=== PATIENT | female | born 1985 | race Caucasian/White ===

== ENCOUNTER 2016-05-15 22:52 | Emergency (ER) | payer OTHER ==
[2016-05-15 23:21] VITALS: BP 126/96
--- NOTE | 2016-05-15 23:27 | ED CARDIAC/CP/PALPITATIONS ---
History of Present Illness General Chief Complaint: Chest Pain Stated Complaint: "DANIELA BEEN STRESSED OUT AND HAVE CHEST PAIN" Source: patient Exam Limitations: no limitations Vital Signs & Intake/Output Vital Signs & Intake/Output Vital Signs Date Time Temp Pulse Resp B/P Pulse O2 O2 Flow FiO2 Ox Delivery Rate 05/16 2323 100 Room Air 05/15 2320 98.6 71 18 126/96 99 Room Air Allergies Coded Allergies: No Known Allergies (11/29/15) Reconcile Medications No Known Home Medications Triage Note: PER PT CP WITH INSPIRATION X 1 HR UNDER ALOT OF STRESS CRYING WHILE EVAL Triage Nurses Notes Reviewed? yes : No Patient currently breastfeeds: No HPI: Patient has noticed that over the past few weeks whenever she gets stressed she gets a tightness in her chest and radiates to her left shoulder. She gets short of breath when she gets a tightness. The tightness goes away after she relaxes. At its worst the tightness is 8 out of 10. Patient was talking to her sister mayte about this so decided to come in for evaluation. Patient denies any current pain however she states that she did have it upon arrival to the emergency department. Past History Travel History Traveled to [place] past 21 day No Medical History Any Pertinent Medical History? none Neurological: NONE EENT: NONE Cardiovascular: NONE Respiratory: NONE Gastrointestinal: NONE Hepatic: NONE Renal: NONE Musculoskeletal: NONE Psychiatric: NONE Endocrine: NONE Blood Disorders: NONE GRAPHIC ART TECHNICIAN/Reproductive: NONE Surgical History Surgical History: non-contributory Psychosocial History What is your primary language Gabonese Tobacco Use: Never used ETOH Use: denies use Illicit Drug Use: denies illicit drug use Family History Hx Contributory? No Review of Systems Review of Systems Constitutional: Reports: no symptoms. EENTM: Reports: no symptoms. Respiratory: Reports: see HPI, short of breath. Cardiovascular: Reports: see HPI, chest pain. GI: Reports: no symptoms. Genitourinary: Reports: no symptoms. Musculoskeletal: Reports: no symptoms. Skin: Reports: no symptoms. Neurological/Psychological: Reports: no symptoms. Hematologic/Endocrine: Reports: no symptoms. Immunologic/Allergic: Reports: no symptoms. All Other Systems: Reviewed and Negative Physical Exam Physical Exam General Appearance: well developed/nourished, alert, awake, anxious, mild distress Head: atraumatic, normal appearance Eyes: Bilateral: PERRL, EOMI. Ears, Nose, Throat: normal pharynx, normal ENT inspection, hearing grossly normal Neck: normal inspection, supple, full range of motion Respiratory: normal breath sounds, chest non-tender, no respiratory distress, lungs clear Cardiovascular: regular rate/rhythm, normal peripheral pulses Gastrointestinal: normal bowel sounds, soft, non-tender, no organomegaly Back: normal inspection Extremities: normal inspection, normal capillary refill, normal range of motion, no edema Neurologic/Psych: no motor/sensory deficits, awake, alert, oriented x 3, normal gait, normal mood/affect Skin: intact, normal color, warm/dry Lymphatic: no anterior cervical adrian Core Measures ACS in differential dx? Yes ASA ordered for poss ACS? No-ACS ruled out Severe Sepsis Present: No Septic Shock Present: No Progress Differential Diagnosis: AMI, costochondritis, musculoskeletal pain, myocarditis, pericarditis, pulmonary embolism Plan of Care: Orders Procedure Date/time Status HUMAN BETA HCG SCREEN 05/15 2325 Complete D-DIMER 05/15 2325 Complete COMPREHENSIVE METABOLIC PANEL 05/15 2325 Complete CBC WITHOUT DIFFERENTIAL 05/15 2325 Complete EKG 05/16 2255 Active Laboratory Tests 05/15/16 2345: Anion Gap 6, Estimated GFR > 60, BUN/Creatinine Ratio 20.0, Glucose 101 H, Calcium 9.7, Total Bilirubin 0.4, AST 22, ALT 30, Alkaline Phosphatase 39, Total Protein 6.4, Albumin 3.9, Globulin 2.5, Albumin/Globulin Ratio 1.6, Total Beta HCG NEGATIVE, D-Dimer < 200, CBC w Diff NO MAN DIFF REQ, RBC 4.12 L, MCV 88.9, MCH 30.2, RDW 13.9, MPV 8.1, Gran % 55.1, Lymphocytes % 36.0, Monocytes % 6.9, Eosinophils % 1.6, Basophils % 0.4, Absolute Granulocytes 4.1, Absolute Lymphocytes 2.7, Absolute Monocytes 0.5, Absolute Eosinophils 0.1, Absolute Basophils 0, PUBS MCHC 33.9 Initial ED EKG: NSR, no ST T wave changes Departure Departure Disposition: HOME OR SELF CARE Condition: Stable Clinical Impression Primary Impression: Chest pain, unspecified Referrals: ELÍAS SIMON MD (PCP/Family) Additional Instructions: RETURN IF SYMPTOMS WORSEN OR FOR ANY CONCERNS Departure Forms: Customer Survey General Discharge Information Prescriptions: Current Visit Scripts No Known Home Medications Critical Care Note Critical Care Note Critical Care Time: non-applicable
[2016-05-16 00:06] LABS: ABSOLUTE BASOPHIL COUNT 0 /CUMM (0.0-0.2); ABSOLUTE EOSINOPHIL COUNT 0.1 /CUMM (0.0-0.7); ABSOLUTE GRANULOCYTE CT 4.1 /CUMM (1.4-6.5); ABSOLUTE LYMPH COUNT 2.7 /CUMM (1.2-3.4); ABSOLUTE MONOCYTE COUNT 0.5 /CUMM (0.10-0.60); BASOPHIL % 0.4 % (0.0-2.0); EOSINOPHIL % 1.6 % (0-5); GRANULOCYTE % 55.1 % (42.2-75.2); HEMATOCRIT 36.7 % (37-47); MEAN CORPUSCULAR HGB 30.2 PG (27.0-31.0); MEAN CORPUSCULAR HGB CONC 33.9 G/DL (33.0-37.0); MEAN CORPUSCULAR VOLUME 88.9 FL (81.0-99.0); MEAN PLATELET VOLUME 8.1 FL (7.4-10.4); PLATELET COUNT 328 /CUMM (130-400); RBC DISTRIBUTION WIDTH 13.9 % (11.5-14.5); RED BLOOD CELL CT 4.12 /CUMM (4.20-5.40); WHITE BLOOD CELL COUNT 7.4 /CUMM (4.8-10.8)
== END 2016-05-16 00:42 ==
LOC: ERH 22:52
PROVIDERS: Emergency Medicine
DX: R07.89 Other chest pain (principal)
CPT/HCPCS: 93005; 93010